=== PATIENT | female | born 1980 | race Caucasian/White ===

== ENCOUNTER 2019-04-01 23:36 | Emergency (ER) | payer OTHER ==
[~2019-04-01] VITALS: Ht 149.9 cm; Wt 65.8 kg
[~2019-04-01 23:36] MED LIST: Pepcid40 MG PO; Veetids 500500 MG PO
[2019-04-02] MEDS ORDERED: IBUP600 PO (00:38)
== END 2019-04-02 01:23 | disposition home or self-care (01) ==
LOC: ER 23:36
DX: S92.512A Displaced fracture of proximal phalanx of left lesser toe(s), initial encounter for closed fracture (principal); X58.XXXA Exposure to other specified factors, initial encounter; F17.200 Nicotine dependence, unspecified, uncomplicated
CPT/HCPCS: 73630; 99283-25; A9270